=== PATIENT | female | born 2000 | race Caucasian/White ===

== ENCOUNTER 2021-02-21 13:52 | Emergency (ER) | payer OTHER, SELFPAY ==
[2021-02-21 14:00] VITALS: BP 119/81; PULSE 94; RESP 16; TEMP 36.1; O2SAT 100
--- NOTE | 2021-02-21 14:08 | ED.URI ---
HPI - URI/Sore Throat General Chief Complaint: Upper Respiratory Infection Stated Complaint: SORE THROAT/COUGH/NASAL CONGESITON Time Seen by Provider: 02/21/21 13:53 Source: patient Mode of arrival: ambulatory Limitations: no limitations History of Present Illness HPI Narrative: 20-year-old female presents to [facility] with complaints of sore throat, nasal congestion, runny nose and dry cough since yesterday. Patient reports that she did have a mild low-grade fever of 99 yesterday. Patient is not tried taking any [id number] medications for her symptoms. Patient has long history of strep throat. Patient denies sick contacts. Patient denies recent travel. Patient did have a negative Covid test completed yesterday. Patient reports that she has received her Covid vaccine. Patient denies nausea, vomiting, diarrhea, shortness of breath, wheezing, body aches or chills. MD elicited complaint: cough, sore throat, rhinorrhea and nasal congestion Onset (ago): day(s) (2) Able to tolerate fluids by mouth: Yes Exacerbating factors: nothing Relieving factors: nothing Treatments prior to arrival: none Related Data Allergies Allergy/AdvReac Type Severity Reaction Status Date / Time No Known Allergies Allergy Verified 06/15/13 19:47 Review of Systems Constitutional: Constitutional: Denies chills, Denies fatigue, Denies fever(s) and Denies weakness ENT: Denies dysphagia, Denies dizziness, Denies epistaxis, Reports nasal congestion and Reports sore throat Comments: Runny nose Cardiovascular: Cardiovascular: Denies chest pain, Denies rapid heart rate and Denies slow heart rate Respiratory: Respiratory: Denies chest congestion, Reports cough and Denies dyspnea Gastrointestinal: Gastrointestinal: Denies abdominal pain, Denies diarrhea, Denies nausea and Denies vomiting Integumentary/Breasts: Skin/Breast: Denies rash Neurologic: Denies dizziness PMFSH Social History Social History (Updated 02/21/21 @ 14:10 by Belle Headley APRN) Smoking status: Never smoker Gender identity (if verbalized by the patient): Female Comments At time of signature, I agree with nursing past medical, surgical, social and family history. There is no relevant family history pertinent to the presenting complaint. Exam Const: General: no acute distress Nutritional Appearance: well nourished Orientation/consciousness: patient oriented x3 HENMT: Head: normal to inspection Ears: external ears normal and TM's normal bilaterally Face and sinus: sinuses nontender Mouth: Yes Normal oral and palatal mucosa present, Yes lip normal and Yes moist mucous membranes Throat: uvula midline Other: Mild erythema and swelling noted to bilateral tonsils Neck: Neck: normal visual inspection Resp: Effort & Inspection: normal respiratory effort, not labored and not tachypneic Auscultation: clear to auscultation bilaterally Cardio: Rate: regular rate, not bradycardic and not tachycardic Rhythm: regular rhythm Skin: General skin exam: normal color Rashes: no rashes Wounds: no wounds Neuro: General: patient oriented x3 and moves all extremities Speech: normal speech Psych: Appearance: grossly normal Mental Status: mental status grossly normal Affect: normal affect Attitude: cooperative Course Vital Signs Vital signs: Vital Signs Temperature 36.1 C L 02/21/21 14:00 Pulse Rate 94 02/21/21 14:00 Respiratory Rate 16 02/21/21 14:00 Blood Pressure 119/81 02/21/21 14:00 Pulse Oximetry 100 02/21/21 14:00 Temperature 36.1 C L 02/21/21 14:00 Pulse Rate 94 02/21/21 14:00 Respiratory Rate 16 02/21/21 14:00 Blood Pressure 119/81 02/21/21 14:00 Pulse Oximetry 100 02/21/21 14:00 MDM - URI/Sore Throat MDM Narrative Medical decision making narrative: Negative strep results discussed with patient. Throat culture will be sent to lab. Patient agrees take Claritin and Flonase as prescribed. Patient agrees to follow-up with adriel
== END 2021-02-21 14:16 | disposition home or self-care (01) ==
PROVIDERS: Emergency Provider Nurse Practitioner Family
DX: J06.9 Acute upper respiratory infection, unspecified (principal)
CPT/HCPCS: 87081; 87880; 99213; G0463